=== PATIENT | female | born 1995 | race Caucasian/White ===

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

== ENCOUNTER 2017-05-01 15:32 | Observation (INO) | payer MEDICAID ==
[2017-05-01] MEDS ORDERED: Ondansetron 4 MG/2 ML SDV IVPUSH ONE (17:34)
[2017-05-01] MEDS: Lactated Ringers 1,000 ML IV SCH ×2 (18:00→19:05)
[2017-05-01 18:21] LABS: CHLORIDE,CL 106 mmol/L (98-110); SODIUM,NA 134 mmol/L (136-146)
[2017-05-01] MEDS ORDERED: Atropine/Diphenoxylate 0.025-2.5 MG Tab PO ONE (19:58)
== END 2017-05-01 22:20 | disposition home or self-care (01) ==
LOC: MW.OBCHECK 15:32 → UNDOADMOB 15:38 → MW.OB 15:38 → MW.OBCHECK 16:24 → MW.OB 16:24 → EDSTATUS 16:28 → MW.OB 16:29
PROVIDERS: ADMIT Obstetrics & Gynecology; ATTEND Obstetrics & Gynecology
DX: O99.89 Other specified diseases and conditions complicating pregnancy, childbirth and the puerperium (principal); R19.7 Diarrhea, unspecified; R11.2 Nausea with vomiting, unspecified; Z3A.27 27 weeks gestation of pregnancy
CPT/HCPCS: 36415; 59025; 80053; 81001; 85025; 87046; 87086; 87899; A9270; J2405; J7120; 96361; 96374; G0378

== ENCOUNTER 2020-02-12 04:40 | Inpatient (IN) | payer MEDICAID, OTHER ==
[2020-02-12] MEDS ORDERED: Sodium Chloride 0.9% 10 ML SDV IV PRN (05:47)
[2020-02-12] MEDS ORDERED: Sodium Chloride 0.9% 10 ML Syringe FLUSH PRN (05:47)
[2020-02-12] MEDS ORDERED: Terbutaline 1 MG/ML SDV SUBCUT PRN (05:47)
[2020-02-12] MEDS ORDERED: Ondansetron 4 MG/2 ML SDV IVPUSH PRN (05:47)
[2020-02-12] MEDS ORDERED: Sodium Chloride 0.9% 2.5 ML Syringe FLUSH PRN (05:47)
[2020-02-12] MEDS ORDERED: Lidocaine 1% 50 ML MDV INJECT PRN (05:47)
[2020-02-12] MEDS ORDERED: Nalbuphine 10 MG/1 ML Vial IVPUSH PRN (05:47)
[2020-02-12] MEDS ORDERED: Misoprostol 25 MCG (1/4 of 100 MCG) Tab VAG PRN ×2 (05:47)
[2020-02-12] MEDS ORDERED: Methylergonovine 0.2 MG/1 ML Amp IM PRN (05:47)
[2020-02-12] MEDS ORDERED: Carboprost Tromethamine 250 MCG/1 ML Amp IM PRN (05:47)
[2020-02-12] MEDS ORDERED: Tranexamic Acid 1,000 MG in Sodium Chloride 0.9% 100 ML IV PRN (05:47)
[2020-02-12] MEDS ORDERED: Water For Irrigation,Sterile 1,000 ML Container IRR PRN (05:47)
[2020-02-12] MEDS ORDERED: Misoprostol 200 MCG Tab PO PRN (05:47)
[2020-02-12] MEDS ORDERED: Oxytocin/0.9 % Sodium Chloride 30 UNIT/500 ML BAG IV SCH ×2 (06:00)
[2020-02-12] MEDS: Lactated Ringers 1,000 ML IV SCH ×2 (07:12→11:10)
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
[2020-02-12] MEDS ORDERED: Ropivacaine HCl/PF 100 ML ONE (11:06)
[2020-02-12] MEDS ORDERED: fentaNYL 100 MCG/2 ML SDV ONE (11:06)
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
--- NOTE | 2020-02-12 11:26 | PCM.PRNOTE ---
- Free Text/Narrative Note: Anes NOte Patient requests epidural for L&D. Sitting position. Level L3-L4 midline approach. Chloraprep scrub to lumbar area. Sterile fenestrated drape applied. Epidural space easily achieved single attempt with ease using YENNY technique. YENNY at 4 cm. Cath threaded 5 cm with ease. Cath secured at skin at 10 cm using sterile clear adhesive dressing. Test 1110 3 cc 1.5% lido with epi negative. 1114 Load 10 cc 0.2% ropiv with 1 mcg cc fentanyl in slow divided doses. 1118 Pump started wtih 90 cc same solution. Rate is 8 cc hr with 6 cc q 20 min prn bolus. Antonieta well. Time with patient [id number] Harsha Gabriel CRNA
[2020-02-12] MEDS ORDERED: Acetaminophen 500 MG Tab PO PRN ×2 (13:19)
[2020-02-12] MEDS ORDERED: Lanolin 100% Cream 7 GM Tube TOP PRN (13:19)
[2020-02-12] MEDS ORDERED: oxyCODONE 5 MG Tab PO PRN (13:19)
[2020-02-12] MEDS ORDERED: Benzocaine/Menthol 20%-0.5% Spray 78 GM Cannister TOP PRN (13:19)
[2020-02-12] MEDS ORDERED: Ibuprofen 400 MG Tab PO PRN (13:19)
[2020-02-12] MEDS ORDERED: Witch Hazel Medicated Pads 40/Jar TOP PRN (13:19)
[2020-02-12] MEDS ORDERED: Bisacodyl 10 MG Supp RECTAL PRN (13:19)
[2020-02-12] MEDS ORDERED: Docusate Sodium 100 MG Cap PO PRN (13:19)
--- NOTE | 2020-02-12 13:26 | PCM.DEL ---
L & D Note - General Info Date of Service: 02/12/20 Mother's Due Date: 02/16/20 - Delivery Note Labor: Induced by Oxytocin Delivery Outcome: Livebirth Delivery Mode: Spontaneous Presentation: Right Occiput Anterior (CATRINA) Nuchal Cord: None Anesthesia Type: Epidural Amniotic Fluid Description: Clear Episiotomy Type: None Laceration: None Placenta: Intact, Spontaneous Cord: 3 Vessels Estimated Blood Loss: 200 Resuscitation Needed: No : Bulb Syringe, Stimulated, Warmed, [place] Used Score 1 min: 8 Score 5 min: 9 Second Stage Interventions: Reports: Encouragement Given, Pushing Effectively, Pushing, Feet in Foot Rests Delivery Comments (Free Text/Narrative):: Gregoria is a 24 yo at 39.3 weeks gestation (HERMELINDO 02/16/2020) S/P uncomplicated of viable, vigorous, term NBM. NBM placed to low maternal abdomen, warmed, dried, stimulated, bulb syringe suctioned with spontaneous cries following. Umbilical cord left intact until cessation of pulsation ~1.5 min, cord clamped x2, cut by FOB. Placenta delivered ~3-4 min S/P NBM, Ron, intact, 3VC. Perineum intact. Uterus firm @ U, scant uterine bleeding noted. Mother resting quietly and comfortably in the bed. NBM at warmer with RN for weight, 7 lb 1 oz, Apgars 8/9. Induction Criteria - Weinstein Score Weinstein Score Dilation: 3-4 cm Weinstein Score Effacement: 60-70% Weinstein Score 's Station: -2 Weinstein Score Consistency: Soft Weinstein Score Cervix Position: Midposition Weinstein Score Total: 8 Weinstein Score Presenting Part: Reports: Cephalic - Induction Gestational Age >/= 39 wks: Yes Estimated Pelvis: Reports: Adequate Reassuring Monitoring Strip: Yes Absence of Tachy Systole: Yes - General Info Date of Service: 02/12/20 Admission Dx/Problem (Free Text): Patient Status Order with Admit Dx/Problem 02/12/20 05:47 Patient Status [ADT] Routine Admission Diagnosis/Problem Admission Diagnosis/Problem 02/12/20 09:27 Gregoria is a 24 yo at 39.3 weeks gestation (HERMELINDO 02/16/2020) that presents today for elective IOL. O pos, RI, GBS neg. Denies any complaints or concerns at this time, denies LOF, denies contractions or pain. Reports ample movement. Pertinent history includes pre- obesity. Ax: Niacin (B3). Medications: PNV. Functional Status: Reports: Pain Controlled - Review of Systems General: Reports: No Symptoms HEENT: Reports: No Symptoms Pulmonary: Reports: No Symptoms Cardiovascular: Reports: No Symptoms Gastrointestinal: Reports: No Symptoms Genitourinary: Reports: No Symptoms Musculoskeletal: Reports: No Symptoms Skin: Reports: No Symptoms Neurological: Reports: No Symptoms Psychiatric: Reports: No Symptoms - Patient Data Vitals - Most Recent: T 97.0 HR 89 BP 128/63 (78). Hemodynamically stable, afebrile. Weight - Most Recent: 214 lb 15.987 oz Lab Results Last 24 Hours: Laboratory Results - last 24 hr 02/12/20 02/12/20 02/12/20 Range/Units 05:33 06:17 06:17 WBC 9.54 (4.0-11.0) K/uL RBC 3.97 L (4.30-5.90) M/uL Hgb 12.4 (12.0-16.0) g/dL Hct 37.1 (36.0-46.0) % MCV 93.5 (80.0-98.0) fL MCH 31.2 (27.0-32.0) pg MCHC 33.4 (31.0-37.0) g/dL RDW Std Deviation 47.8 (28.0-62.0) fl RDW Coeff of Maribell 14 (11.0-15.0) % Plt Count 181 (150-400) K/uL MPV 10.60 (7.40-12.00) fL Nucleated RBC % 0.0 /100WBC Nucleated RBCs # 0 K/uL COVID-19 (THEE) NEGATIVE (NEGATIVE) Blood Type O POSITIVE Antibody Screen NEGATIVE Med Orders - Current: Current Medications Discontinued Medications Carboprost Tromethamine (Hemabate Ds) 250 mcg IM ASDIRECTED PRN PRN Reason: Post Hemorrhage Fentanyl (Sublimaze) Confirm Administered Dose 100 mcg .ROUTE .STK-MED ONE Stop: 02/12/20 11:07 Lactated Ringer's (Ringers, Lactated) 1,000 mls @ 150 mls/hr IV ASDIRECTED [facility] Last Admin: 02/12/20 11:10 Dose: 150 mls/hr Documented by: Oxytocin/Sodium Chloride (Oxytocin 30 Unit/500 Ml-Ns) 30 unit in 500 mls @ 999 mls/hr IV TITRATE [facility] Tranexamic Acid 1,000 mg/ (Sodium Chloride) 110 mls @ 660 mls/hr IV ONETIME PRN PRN Reason: Bleeding Oxytocin/Sodium Chloride (Oxytocin 30 Unit/500 Ml-Ns) 30 unit in 500 mls @ 2 mls/hr IV TITRATE [facility]; Protocol Last Titration: 02/12/20 09:53 Dose: 10 munits/min, 10 mls/hr Documented by: Ropivacaine (Naropin 0.2%) Confirm Administered Dose 100 mls @ as directed .ROUTE .[facility] ONE Stop: 02/12/20 11:07 Lidocaine HCl (Xylocaine 1%) 50 ml INJECT ONETIME PRN PRN Reason: Laceration repair Methylergonovine Maleate (Methergine) 0.2 mg IM ASDIRECTED PRN PRN Reason: Post Hemorrhage Misoprostol (Cytotec) 200 mcg PO ONETIME PRN PRN Reason: Post Hemorrhage Misoprostol (Cytotec) 25 mcg VAG ONETIME PRN PRN Reason: Cervical Ripening Misoprostol (Cytotec) 25 mcg VAG Q4H PRN PRN Reason: Cervical Ripening Nalbuphine HCl (Nubain) 10 mg IVPUSH Q1H PRN PRN Reason: Pain (severe 7-10) Ondansetron HCl (Zofran) 4 mg IVPUSH Q4H PRN PRN Reason: Nausea/Vomiting Sodium Chloride (Saline Flush) 10 ml FLUSH ASDIRECTED PRN PRN Reason: Keep Vein Open Sodium Chloride (Saline Flush) 2.5 ml FLUSH ASDIRECTED PRN PRN Reason: Keep Vein Open Sodium Chloride (Normal Saline) 10 ml IV ASDIRECTED PRN PRN Reason: IV Use Sterile Water (Sterile Water For Irrigation) 1,000 ml IRR ASDIRECTED PRN PRN Reason: delivery Terbutaline Sulfate (Brethine) 0.25 mg SUBCUT ASDIRECTED PRN PRN Reason: Tacysystole - Exam General: Alert, Oriented, Cooperative, No Acute Distress HEENT: Pupils Equal, Pupils Reactive, Mucous Membr. Moist/Bedias Neck: Supple Lungs: Clear to Auscultation, Normal Respiratory Effort Cardiovascular: Regular Rate, Regular Rhythm GI/Abdominal Exam: Normal Bowel Sounds, Soft, Non-Tender, No Organomegaly, No Distention (Female) Exam: Normal External Exam (Perineum intact), Enlarged Uterus ( uterus, firm U-1), Vaginal Bleeding (Scant vaginal bleeding, no clots) Back Exam: Normal Inspection, Full Range of Motion Extremities: Normal Inspection, Normal Range of Motion, Non-Tender, No Pedal Edema, Normal Capillary Refill Skin: Warm, Dry, Intact Neurological: No New Focal Deficit (Epidural analgesia, bilateral lower extremitites) Psy/Mental Status: Alert, Normal Affect, Normal Mood - Problem List & Annotations (1) (normal spontaneous vaginal delivery) SNOMED Code(s): 28690245, 539117027 Code(s): O80 - ENCOUNTER FOR FULL-TERM UNCOMPLICATED DELIVERY Status: Acute Priority: High Current Visit: Yes (2) Lactating mother SNOMED Code(s): 529354059, 433224871 Code(s): Z39.1 - ENCOUNTER FOR CARE AND EXAMINATION OF LACTATING MOTHER Status: Acute Priority: High Current Visit: Yes - Problem List Review Problem List Initiated/Reviewed/Updated: Yes - My Orders Last 24 Hours: My Active Orders 02/12/20 13:19 Patient Status [ADT] Routine May Shower [RC] ASDIRECTED Up ad Alecia [RC] ASDIRECTED Vital Signs [RC] PER UNIT ROUTINE Acetaminophen [Tylenol Extra Strength] 1,000 mg PO Q4H PRN Acetaminophen [Tylenol Extra Strength] 500 mg PO Q4H PRN Benzocaine/Menthol [Dermoplast Pain Relief 20%-0.5% [place]] 78 gm TOP ASDIRECTED PRN Docusate Sodium [Colace] 100 mg PO BID PRN Ibuprofen [Motrin] 400 mg PO Q4H PRN Ibuprofen [Motrin] 800 mg PO Q6H PRN Lanolin [Lansinoh HPA] See Dose Instructions TOP ASDIRECTED PRN bisacodyL [Dulcolax] 10 mg RECTAL ONETIME PRN oxyCODONE 5 mg PO Q2H PRN witch Nataly [Tucks] 1 pad TOP ASDIRECTED PRN Assess Lochia [WOMSER] Per Unit Routine Assess Uterine Involution [WOMSER] Per Unit Routine Peripheral IV Discontinue [OM.PC] Routine Resuscitation Status Routine 02/12/20 13:20 Cooling Warming Measures [RC] ASDIRECTED Ice Therapy [OM.PC] Per Unit Routine Perineal Care [OM.PC] Per Unit Routine Sitz Bath [OM.PC] Per Unit Routine - Plan Plan:: Gregoria is a 24 yo at 39.3 weeks gestation (HERMELINDO 02/16/2020) here for successful elective IOL with subsequent uncomplicated of viable, term NBM. O pos, RI, GBS neg. Continue to normal POC, see new orders. Plans to breast and bottle feed. Plan to D/C home in 24-48 hours dependent upon medical condition at that time. Dr. Joy notified and agreeable to POC.
[2020-02-12] MEDS: Ibuprofen 800 MG Tab PO PRN ×2 (14:03→19:57)
[2020-02-13] MEDS: Ibuprofen 800 MG Tab PO PRN (07:26)
--- NOTE | 2020-02-13 07:39 | PCM48HPAN ---
Post Anesthesia Note - EVALUATION WITHIN 48HRS OF ANESTHETIC Vital Signs in Normal Range: Yes Patient Participated in Evaluation: Yes Respiratory Function Stable: Yes Airway Patent: Yes Cardiovascular Function Stable: Yes Hydration Status Stable: Yes Pain Control Satisfactory: Yes (2-3/10 pain, adequate pain control per patient) Nausea and Vomiting Control Satisfactory: Yes Mental Status Recovered: Yes Vital Signs: Last Vital Signs Temp 36.9 C 02/12/20 19:14 Pulse 86 02/13/20 06:00 Resp 17 02/13/20 06:00 BP 119/57 L 02/13/20 06:00 Pulse Ox 97 02/13/20 06:00 - COMMENTS/OBSERVATIONS Free Text/Narrative:: Patient reports ambulating well, full return of strength and sensation to BLE.
[2020-02-13 07:43] VITALS: BP 124/61; PULSE 78
--- NOTE | 2020-02-13 09:14 | PCM.DCSUM1 ---
Discharge Summary - Hospital Course Free Text/Narrative:: Discharge home with . Follow up in 6 weeks for . Diagnosis: Stroke: No - Discharge Data Discharge Date: 02/13/20 Discharge Disposition: Home, Self-Care 01 Condition: Good - Referral to Home Health Primary Care Physician: PCP None - Discharge Diagnosis/Problem(s) (1) (normal spontaneous vaginal delivery) SNOMED Code(s): 98472092, [id number] ICD Code: O80 - ENCOUNTER FOR FULL-TERM UNCOMPLICATED DELIVERY Status: Acute Priority: High Current Visit: Yes - Patient Instructions Diet: Usual Diet as Tolerated Activity: As Tolerated, No Strenuous Activities, Rest and Relax Today Driving: May Drive Today Showering/Bathing: May Shower Notify Provider of: Fever, Increased Pain, Swelling and Redness, Nausea and/or Vomiting Other/Special Instructions: Discharge home with infant. Follow up in 6 weeks for . - Discharge Plan *PRESCRIPTION DRUG MONITORING PROGRAM REVIEWED*: Not Applicable *COPY OF PRESCRIPTION DRUG MONITORING REPORT IN PATIENT MIKA: Not Applicable Home Medications: Home Meds Pnv No.95/Ferrous Fum/Folic AC [ Tablet] 1 tab PO DAILY 12/28/16 [History] Oxygen Therapy Mode: Room Air Patient Handouts: Care After Vaginal Delivery - Discharge Summary/Plan Comment DC Time >30 min.: Yes Discharge Summary/Plan Comment: Discharge home with . Follow up in 6 weeks for . - General Info Date of Service: 02/13/20 Admission Dx/Problem (Free Text: Patient Status Order with Admit Dx/Problem 02/12/20 05:47 Patient Status [ADT] Routine Admission Diagnosis/Problem Admission Diagnosis/Problem 02/12/20 09:27 Gregoria is a 24 yo at 39.3 weeks gestation (HERMELINDO 02/16/2020) that presents today for elective IOL. O pos, RI, GBS neg. Denies any complaints or concerns at this time, denies LOF, denies contractions or pain. Reports ample m ovement. Pertinent history includes pre- obesity. Ax: Niacin (B3). Medications: PNV. Functional Status: Reports: Pain Controlled, Tolerating Diet, Ambulating - Review of Systems General: Reports: No Symptoms HEENT: Reports: No Symptoms Pulmonary: Reports: No Symptoms Cardiovascular: Reports: No Symptoms Gastrointestinal: Reports: No Symptoms Genitourinary: Reports: No Symptoms Musculoskeletal: Reports: No Symptoms Skin: Reports: No Symptoms Neurological: Reports: No Symptoms Psychiatric: Reports: No Symptoms - Patient Data Vitals - Most Recent: Last Vital Signs Temp 36.6 C 02/13/20 07:43 Pulse 78 02/13/20 07:43 Resp 14 02/13/20 07:43 BP 124/61 02/13/20 07:43 Pulse Ox 98 02/13/20 07:43 Weight - Most Recent: 97.522 kg Med Orders - Current: Current Medications Acetaminophen (Tylenol Extra Strength) 500 mg PO Q4H PRN PRN Reason: Pain Acetaminophen (Tylenol Extra Strength) 1,000 mg PO Q4H PRN PRN Reason: Pain Benzocaine/Menthol (Dermoplast Pain Relief 20%-0.5% [place]) 78 gm TOP ASDIRECTED PRN PRN Reason: Perineal Comfort Measure Last Admin: 02/12/20 14:02 Dose: 1 canister Documented by: Bisacodyl (Dulcolax) 10 mg RECTAL ONETIME PRN PRN Reason: Constipation Docusate Sodium (Colace) 100 mg PO BID PRN PRN Reason: Constipation Last Admin: 02/12/20 14:03 Dose: 100 mg Documented by: Emollient Ointment (Lansinoh Hpa) 0 gm TOP ASDIRECTED PRN PRN Reason: Sore Nipples Ibuprofen (Motrin) 400 mg PO Q4H PRN PRN Reason: Pain Ibuprofen (Motrin) 800 mg PO Q6H PRN PRN Reason: Pain Last Admin: 02/13/20 07:26 Dose: 800 mg Documented by: Oxycodone HCl (Oxycodone) 5 mg PO Q2H PRN PRN Reason: Pain Witch Monica (Tucks) 1 pad TOP ASDIRECTED PRN PRN Reason: comfort care Last Admin: 02/12/20 14:02 Dose: 1 tub Documented by: Discontinued Medications Carboprost Tromethamine (Hemabate Ds) 250 mcg IM ASDIRECTED PRN PRN Reason: Post Hemorrhage Fentanyl (Sublimaze) Confirm Administered Dose 100 mcg .ROUTE .STK-MED ONE Stop: 02/12/20 11:07 Lactated Ringer's (Ringers, Lactated) 1,000 mls @ 150 mls/hr IV ASDIRECTED [facility] Last Admin: 02/12/20 11:10 Dose: 150 mls/hr Documented by: Oxytocin/Sodium Chloride (Oxytocin 30 Unit/500 Ml-Ns) 30 unit in 500 mls @ 999 mls/hr IV TITRATE [facility] Tranexamic Acid 1,000 mg/ (Sodium Chloride) 110 mls @ 660 mls/hr IV ONETIME PRN PRN Reason: Bleeding Oxytocin/Sodium Chloride (Oxytocin 30 Unit/500 Ml-Ns) 30 unit in 500 mls @ 2 mls/hr IV TITRATE [facility]; Protocol Last Titration: 02/12/20 13:08 Dose: 500 munits/min, 500 mls/hr Documented by: Ropivacaine (Naropin 0.2%) Confirm Administered Dose 100 mls @ as directed .ROUTE .[facility] ONE Stop: 02/12/20 11:07 Lidocaine HCl (Xylocaine 1%) 50 ml INJECT ONETIME PRN PRN Reason: Laceration repair Methylergonovine Maleate (Methergine) 0.2 mg IM ASDIRECTED PRN PRN Reason: Post Hemorrhage Misoprostol (Cytotec) 200 mcg PO ONETIME PRN PRN Reason: Post Hemorrhage Misoprostol (Cytotec) 25 mcg VAG ONETIME PRN PRN Reason: Cervical Ripening Misoprostol (Cytotec) 25 mcg VAG Q4H PRN PRN Reason: Cervical Ripening Nalbuphine HCl (Nubain) 10 mg IVPUSH Q1H PRN PRN Reason: Pain (severe 7-10) Ondansetron HCl (Zofran) 4 mg IVPUSH Q4H PRN PRN Reason: Nausea/Vomiting Sodium Chloride (Saline Flush) 10 ml FLUSH ASDIRECTED PRN PRN Reason: Keep Vein Open Sodium Chloride (Saline Flush) 2.5 ml FLUSH ASDIRECTED PRN PRN Reason: Keep Vein Open Sodium Chloride (Normal Saline) 10 ml IV ASDIRECTED PRN PRN Reason: IV Use Sterile Water (Sterile Water For Irrigation) 1,000 ml IRR ASDIRECTED PRN PRN Reason: delivery Terbutaline Sulfate (Brethine) 0.25 mg SUBCUT ASDIRECTED PRN PRN Reason: Tacysystole - Exam General: Reports: Alert, Oriented, Cooperative, No Acute Distress Lungs: Reports: Normal Respiratory Effort GI/Abdominal Exam: Soft, Non-Tender, Pelvis Stable (Female) Exam: Deferred, Vaginal Bleeding Rectal (Female) Exam: Deferred Back Exam: Reports: Normal Inspection, Full Range of Motion Extremities: Normal Inspection, Normal Range of Motion, Non-Tender, No Pedal Edema Skin: Reports: Warm, Dry, Intact Neurological: Reports: No New Focal Deficit, Normal Speech, Normal Tone, Strength Equal Bilateral Psy/Mental Status: Reports: Alert, Normal Affect, Normal Mood
== END 2020-02-13 16:15 | disposition home or self-care (01) | DRG 807 ==
LOC: MW.OBCHECK 04:40 → MW.OB 04:40 → MW.OBCHECK 05:47 → MW.OB 05:47 → OBSVTOIN 13:06 → MW.OB 16:39
PROVIDERS: ADMIT Obstetrics & Gynecology; ATTEND Obstetrics & Gynecology
PROC: 10E0XZZ Delivery of Products of Conception, External Approach (ICD-10-PCS; principal; 2020-02-12)
PROC: 10907ZC Drainage of Amniotic Fluid, Therapeutic from Products of Conception, Via Natural or Artificial Opening (ICD-10-PCS; 2020-02-12)
PROC: 3E033VJ Introduction of Other Hormone into Peripheral Vein, Percutaneous Approach (ICD-10-PCS; 2020-02-12)
PROC: 3E0R3BZ Introduction of Anesthetic Agent into Spinal Canal, Percutaneous Approach (ICD-10-PCS; 2020-02-12)
PROC: 00HU33Z Insertion of Infusion Device into Spinal Canal, Percutaneous Approach (ICD-10-PCS; 2020-02-12)
DX: O99.214 Obesity complicating childbirth (principal); Z37.0 Single live birth; E66.9 Obesity, unspecified; Z3A.39 39 weeks gestation of pregnancy; Z11.59 Encounter for screening for other viral diseases
CPT/HCPCS: 01967; 36415; 51702; 59025; 59409; 85027; 86592; 86850; 86900; 86901; A9270-GY; J2590; J7120; U0002

== ENCOUNTER 2021-08-11 07:08 | Emergency (ER) | payer MEDICAID ==
[2021-08-11 07:17] VITALS: BP 150/89; PULSE 107
[2021-08-11] MEDS ORDERED: traMADol 50 MG Tab PO ONE (07:27)
== END 2021-08-11 10:16 | disposition home or self-care (01) ==
LOC: MW.ED 07:08
DX: H92.02 Otalgia, left ear (principal); E66.9 Obesity, unspecified; Z68.31 Body mass index [BMI] 31.0-31.9, adult; Z88.1 Allergy status to other antibiotic agents; Z72.0 Tobacco use
CPT/HCPCS: 70480; 99283; A9270